=== PATIENT | female | born 1985 | race Caucasian/White ===

== ENCOUNTER 2018-11-30 07:10 | Inpatient (IN) | payer BC, SELFPAY ==
[2017-04-27 09:41] VITALS: BMI 25.0
[2018-11-30 07:35] VITALS: BMI 25.2
[2018-11-30] MEDS: Lactated Ringers 1,000 ML 50 ML IV ×2 (07:35→12:14)
[2018-11-30 07:50] LABS: Hematocrit 36.8 % (37-47); Mean Corp Hgb Conc 32.6 g/gl (32-36); Mean Corpuscular Hgb 30.9 pg (27.0-32.0); Mean Corpuscular Volume 94.8 fL (81-99); Mean Platelet Vol. 11.6 fl (6.2-12.0); Platelet Count 192 K/mm3 (150-450); RBC Distribution Width CV 13.6 % (11.6-14.6); RBC Distribution Width SD 46.4 fl (35.1-43.9); Red Blood Count 3.88 M/mm3 (4.2-5.4); White Blood Count 7.2 K/mm3 (4.4-11.0)
[2018-11-30 07:56] LABS: Scan Indicated on CBC? Y/N NO
[2018-11-30] MEDS: Oxytocin 30 units/NS 500 ml 30 UNITS/500 ML IV.SOLN IV (08:20)
[2018-11-30] MEDS: fentaNYL-bupivacaine (epidural) 100 ML BAG EPIDURAL (12:35)
[2018-11-30] MEDS: Oxytocin 30 units/NS 500 ml 30 UNITS/500 ML IV.SOLN 334 UNITS IV (16:19)
[2018-11-30] MEDS: Oxytocin 30 units/NS 500 ml 30 UNITS/500 ML IV.SOLN 167 UNITS IV (16:49)
--- NOTE | 2018-11-30 16:57 | PCM.OB.VAG ---
Vaginal Delivery Maternal Presentation: Elective Induction Method of Induction: Pitocin, Amniotomy Amniotic Membrane Rupture Type: Spontaneous Amniotic Fluid Description: Clear Final JALEESA: 11/29/18 Gestational age: 40 Weeks and 1 Days Date of Procedure: 11/30/18 Pre-Operative Diagnosis: labor Post-Operative Diagnosis: same Surgery/ Procedure Performed: Spontaneous Vaginal Delivery Type of Anesthesia: Epidural Description of Procedure: A vigorous male infant was delivered SUSIE over a small first-degree perineal laceration. The remainder the was delivered with maternal pushing and gentle traction only in less than 15 seconds. The Pitocin infusion was initiated for active management of the third stage. The cord was clamped and cut after 1 minute. The was attended to by the waiting nursing staff. The placenta was delivered spontaneously and intact. The cervix and vagina were intact. The first-degree perineal laceration was not repaired. Sponge and needle counts were correct. A vaginal sweep was completed by me. Presentation: SUSIE Placental Delivery Description: Spontaneous Placenta Disposition: [facility] Cord Vessel Description: 3 Vessels Cord Entanglement: None Drain: Parada to straight drain Estimated Blood Loss: 200 A gender: Male (1 minute): 8 (5 minute): 9 Episiotomy Description: None Laceration: 1st degree - perineal- not repaired Medications given after delivery: IV Pitocin Complications: None
--- NOTE | 2018-11-30 17:01 | OP.PCM_ITS ---
Vaginal Delivery Maternal Presentation: Elective Induction Method of Induction: Pitocin, Amniotomy Amniotic Membrane Rupture Type: Spontaneous Amniotic Fluid Description: Clear Final JALEESA: 11/29/18 Gestational age: 40 Weeks and 1 Days Date of Procedure: 11/30/18 Pre-Operative Diagnosis: labor Post-Operative Diagnosis: same Surgery/ Procedure Performed: Spontaneous Vaginal Delivery Type of Anesthesia: Epidural Description of Procedure: A vigorous male infant was delivered SUSIE over a small first-degree perineal laceration. The remainder the was delivered with maternal pushing and gentle traction only in less than 15 seconds. The Pitocin infusion was ini tiated for active management of the third stage. The cord was clamped and cut after 1 minute. The was attended to by the waiting nursing staff. The placenta was delivered spontaneously and intact. The cervix and vagina were intact. The first-degree perineal laceration was not repaired. Sponge and needle counts were correct. A vaginal sweep was completed by me. Presentation: SUSIE Placental Delivery Description: Spontaneous Placenta Disposition: [facility] Cord Vessel Description: 3 Vessels Cord Entanglement: None Drain: Parada to straight drain Estimated Blood Loss: 200 Infant A gender: Male (1 minute): 8 (5 minute): 9 Episiotomy Description: None Laceration: 1st degree - perineal- not repaired Medications given after delivery: IV Pitocin Complications: None
[2018-11-30 19:48] VITALS: BP 124/69; PULSE 102; RESP 15; TEMP 37.1
[2018-12-01] VITALS: BP 121/63; PULSE 98; RESP 14; TEMP 37.4
[2018-12-01 04:45] VITALS: BP 116/70; PULSE 78; RESP 16; TEMP 36.8
[2018-12-01] MEDS: Naproxen 250 MG Tablet PO ×2 (05:12→15:40)
[2018-12-01 08:00] VITALS: BP 114/70; PULSE 89; RESP 18; TEMP 36
--- NOTE | 2018-12-01 11:36 | PCM.DCVAG ---
Discharge Diet: No Restrictions Discharge Activity: May Drive, May Shower May resume sexual activity in: 4-6 weeks Additional Instructions: If you experience any of the following, contact your healthcare provider. Bleeding that soaks a pad every hour for 2 hours Fever 100.4 or higher Unrelieved incision or abdominal pain Swelling, redness, discharge or bleeding from your incision or episiotomy site Your incision begins to separate Problems urinating (including inability to urinate or burning while urinating). Visual changes Severe headache Flu-like symptoms Pain or redness in one of both of your breasts Pain, warmth, tenderness or swelling in your legs, especially the calf area Frequent nausea and vomiting Symptoms of depression or anxiety If you experience any of the following, call 911 or go to the nearest Emergency Room. Chest pain Problems breathing Seizure activity Partial or complete paralysis of a body part, slurred speech, weakness or drooping of the face, or a sudden inability to walk or hold your balance Allergies/Adverse Reactions: Allergies No Known Allergies Allergy (Verified 11/30/18 07:48) Medications to take at Discharge Vits [Prenatabs FA ] 1 tablet PO DAILY 07/17/13 Primary Care Physician: Alcon Perez MD [Primary Care Provider] - Test Results: Test results from this visit will be discussed in further detail at your follow-up appointment, if applicable.
--- NOTE | 2018-12-01 11:37 | DCINST_ITS ---
Discharge Diet: No Restrictions Discharge Activity: May Drive, May Shower May resume sexual activity in: 4-6 weeks Additional Instructions: If you experience any of the following, contact your healthcare provider. * Bleeding that soaks a pad every hour for 2 hours * Fever 100.4 or higher * Unrelieved incision or abdominal pain * Swelling, redness, discharge or bleeding from your incision or episiotomy site * Your incision begins to separate * Problems urinating (including inability to urinate or burning while urinating). * Visual changes * Severe headache * Flu-like symptoms * Pain or redness in one of both of your breasts * Pain, warmth, tenderness or swelling in your legs, especially the calf area * Frequent nausea and vomiting * Symptoms of depression or anxiety If you experience any of the following, call 911 or go to the nearest Emergency Room. * Chest pain * Problems breathing * Seizure activity * Partial or complete paralysis of a body part, slurred speech, weakness or drooping of the face, or a sudden inability to walk or hold your balance Allergies/Adverse Reactions: Allergies No Known Allergies Allergy (Verified 11/30/18 07:48) Medications to take at Discharge Vits [Prenatabs FA ] 1 tablet PO DAILY 07/17/13 Primary Care Physician: Alcon Perez MD [Primary Care Provider] - Test Results: Test results from this visit will be discussed in further detail at your follow- up appointment, if applicable.
--- NOTE | 2018-12-01 11:37 | PCM.PN.OB ---
Subjective: No complaints - Physical Exam General: Alert, Oriented x3 Abdomen: Soft, Non Tender, Non-Distended - ff mid & below umb Extremities: No Calf Tenderness Vital Signs Temp Pulse Resp BP 96.8 F L 89 18 114/70 12/01/18 08:00 12/01/18 08:00 12/01/18 08:00 12/01/18 08:00 Oxygen Delivery Method Room Air Weight: 147 lb 0.773 oz Body Mass Index (BMI) 25.2 Intake and Output for Last 24 Hours 11/29/18 11/30/18 12/02/18 23:59 23:59 00:59 Intake Total 2737.5 / 2737.5 Output Total 1300 / 1300 Balance 1437.5 / 1437.5 Medical Necessity - Tobacco Use Smoking Status: Never smoker Assessment/Plan PPD#1 D/c home later today per patient request Routine care
[2018-12-01 12:00] VITALS: BP 117/61; PULSE 93; RESP 18; TEMP 36.3
[2018-12-01 16:04] VITALS: BP 121/74; PULSE 86; RESP 18; TEMP 36.4
--- NOTE | 2018-12-02 13:00 | PCM.HP.OB ---
History Date of Admission: 11/30/18 Final JALEESA: 11/29/18 Final JALEESA Source: LMP Gestational age: 40 Weeks and 3 Days History of this : This is a 33 year-old, G 7p5 at 40 weeks gestational age. Presents for elective induction. She has a history of 1/3 degree laceration with her first delivery, subsequent vaginal deliveries without complication. Allergies No Known Allergies Allergy (Verified 11/30/18 07:48) Home Medications: Home Medications Vits [Prenatabs FA ] 1 tablet PO DAILY 07/17/13 Smoking Status: Never smoker Alcohol: None Number of Fetus(es): 1 History Past Pregnancies: Past Pregnancies Delivery Date Name GA/Weeks Outcome Route Weight Infant Gender Labor Length Anesthesia Delivery Location Provider FOB Expected Delivery Method: Spontaneous Vaginal Review of Systems Constitutional: Denies: Anorexia, Chills, Fever Cardiovascular: Denies: Chest Pain Respiratory: Denies: Cough Gastrointestinal: Denies: Abdominal Pain Genitourinary: Denies: Dysuria Skin: Reports: Rash Physical Exam Vitals: Vital Signs Temp Pulse Resp BP 97.5 F L 86 18 121/74 H 12/01/18 16:04 12/01/18 16:04 12/01/18 16:04 12/01/18 16:04 General: Alert, Cooperative, No apparent distress Cardiovascular: Regular rate Lungs: Normal air movement Abdomen: Soft, Non-Distended, Gravid, Appropriate for Gestational Age Extremities:: Other - 1+ edema [employer]: Normal external genitalia Estimated gestational size: Appropriate for gestational size Presentation: Cephalic Assessment/Plan This is a 33 year-old, 7 para 5 AB 1 female who presents at 40-1/7 weeks for elective induction of labor. Estimated weight is less than 4500 g clinically and pelvis is clinically adequate to expect vaginal delivery. Patient has a history of third-degree laceration with her first delivery, understands risk of possible recurrence but that likelihood is low. Would like to proceed with expectant management for vaginal delivery. May have epidural, nitrous oxide or Nubain as needed for pain control.
== END 2018-12-01 18:45 | disposition home or self-care (01) | DRG 807 ==
LOC: WP 07:13
PROVIDERS: Admitting Provider Obstetrics & Gynecology; Family Provider Family Medicine; PCP Family Medicine; Referring Provider Obstetrics & Gynecology; Visit Provider Obstetrics & Gynecology
DX: O70.0 First degree perineal laceration during delivery (principal); Z37.0 Single live birth; Z3A.40 40 weeks gestation of pregnancy
CPT/HCPCS: 59025; 59050; 85027; 86850; 86900; 99218; J7120; G0378